=== PATIENT | male | born 1985 | race Caucasian/White ===

== ENCOUNTER 2023-06-30 11:10 | Outpatient (OUT) | payer BC, SELFPAY ==
--- NOTE | 2023-06-30 | XR_ITS ---
The [address] [address] Patient Name: RILEY NEWSOME MRN: [id number] date: 1985 Sex: M Assigned Patient Location: LAB Current Patient Location: Accession/Order Number: [id number] Exam Date: 06/30/2023 11:30 Report Date: 07/01/2023 06:15 At the request of: EMERSON CLARK Procedure: XR chest 2V EXAMINATION: XR chest 2V HISTORY: Productive cough yellow sputum R05.8 COMPARISON: No relevant comparison available. FINDINGS: LUNGS: No significant pulmonary parenchymal abnormalities. VASCULATURE: No increased pulmonary vasculature. PLEURA: No pneumothorax, effusion, or pleural thickening. CARDIAC: No cardiomegaly or cardiac silhouette abnormality. MEDIASTINUM: No visible mass or adenopathy. BONES: No fracture or visible bone lesion. OTHER: Negative. XR/XR chest 2V IMPRESSION: 1. No acute cardiopulmonary process or suspicious findings. Electronically authenticated by: YINA DONAHUE Date: 07/01/2023 06:15
[2023-06-30 11:28] LABS: Basophils Absolute Auto 0.1 10^3/uL (0.0-0.1); Eosinophils Absolute Auto 0.2 10^3/uL (0.0-0.7); Eosinophils Percent Auto 2.7 % (0.9-7.0); Hemoglobin 14.9 g/dL (14.0-18.0); Immature Granulocytes Abs Auto 0.02 10^3/uL (0.00-0.03); Immature Granulocytes Pct Auto 0.2 % (0.0-0.5); Lymphocytes Absolute Auto 2.7 10^3/uL (1.2-3.8); Lymphocytes Percent Auto 32.6 % (20.5-60.0); Mean Corpuscular HGB Conc 35.5 g/dL (29.9-35.2); Mean Corpuscular Hemoglobin 31.4 pg (25.9-34.0); Mean Corpuscular Volume 88.6 fL (80.0-94.0); Mean Platelet Volume 8.5 fL (9.5-13.5); Monocytes Absolute Auto 0.6 10^3/uL (0.3-0.8); Monocytes Percent Auto 6.8 % (1.7-12.0); Neutrophils Absolute Auto 4.7 10^3/uL (1.4-6.5); Neutrophils Percent Auto 56.7 % (43.0-75.0); Platelet Count 209 10^3/uL (150-450); Red Blood Count 4.74 10^6/uL (4.70-6.10); Red Cell Distribution Width 11.8 % (11.0-15.0); White Blood Count 8.3 10^3/uL (4.0-11.0)
[2023-06-30 11:43] LABS: Alanine Aminotransferase 37 U/L (16-63); Albumin Level 3.7 g/dL (3.4-5.0); Alkaline Phosphatase 67 U/L (46-116); Anion Gap 13.7; Aspartate Amino Transferase 22 U/L (15-37); BUN Creatinine Ratio 11.4; Bilirubin Total 0.7 mg/dL (0.2-1.0); Calcium 9.3 mg/dL (8.5-10.1); Carbon Dioxide 26.4 mmol/L (21.0-32.0); Chloride 104 mmol/L (98-107); Chol HDL Ratio 4.9; Cholesterol 207 mg/dL (<=200); Estimated GFR (African America >60 (>=60); Estimated GFR (Non-African Ame >60 (>=60); Globulin 3.6 g/dL; Glucose 99 mg/dL (74-106); HDL Cholesterol 42 mg/dL (40-60); Potassium 4.1 mmol/L (3.5-5.1); Sodium 140 mmol/L (136-145); Total Protein 7.3 g/dL (6.4-8.2); Triglycerides 123 mg/dL (<=150); VLDL CHOLESTEROL 24.6 mg/dL
== END 2023-06-30 11:11 | disposition home or self-care (01) ==
LOC: LAB 11:12
PROVIDERS: PCP Internal Medicine; Visit Provider Internal Medicine
DX: Z00.00 Encounter for general adult medical examination without abnormal findings (principal); R05.8 Other specified cough
CPT/HCPCS: 36415; 71046; 80053; 80061; 85025

== ENCOUNTER 2023-11-28 19:18 | Emergency (ER) | payer BC, SELFPAY ==
[2023-11-28 19:21] VITALS: BP 133/100; PULSE 74; O2SAT 96; BMI 32.5
--- NOTE | 2023-11-28 19:40 | XR_ITS ---
The [address] [address] Patient Name: RILEY NEWSOME MRN: [id number] date: 1985 Sex: M Assigned Patient Location: ER Current Patient Location: Accession/Order Number: [id number] Exam Date: 11/28/2023 20:12 Report Date: 11/28/2023 21:18 At the request of: ROBERT MARKER Procedure: XR elbow RT min 3V RIGHT ELBOW X-RAYS, 11/28/2023. HISTORY: Fell from ladder. Pain. COMPARISON: None. FINDINGS: 3 views of the elbow obtained. Bone mineralization is normal. Alignment normal. No dislocation. No joint effusion. The radial head is intact. XR/XR elbow RT min 3V IMPRESSION: No acute fracture or dislocation at the elbow. Electronically authenticated by: LEE ANN MILLARD Date: 11/28/2023 21:18
--- NOTE | 2023-11-28 19:40 | XR_ITS ---
The [place] [id number] Patient Name: RILEY NEWSOME MRN: [id number] date: 1985 Sex: M Assigned Patient Location: ER Current Patient Location: Accession/Order Number: [id number] Exam Date: 11/28/2023 20:12 Report Date: 11/28/2023 21:18 At the request of: ROBERT MARKER Procedure: XR forearm RT 2V RIGHT FOREARM X-RAYS, 11/28/2023. HISTORY: Fall. Wrist pain. COMPARISON: None. FINDINGS: Mildly displaced, impacted fracture of the distal radius without angulation. Minimally displaced ulnar styloid fracture. The proximal radius and ulna are intact. No dislocation at the elbow. XR/XR forearm RT 2V IMPRESSION: 1. Mildly comminuted and impacted fracture of the distal radius with minimally displaced ulnar styloid fracture. 2. No other radius or ulna fracture. Electronically authenticated by: LEE ANN MILLARD Date: 11/28/2023 21:18
--- NOTE | 2023-11-28 19:40 | XR_ITS ---
The [address] [address] Patient Name: RILEY NEWSOME MRN: [id number] date: 1985 Sex: M Assigned Patient Location: ER Current Patient Location: Accession/Order Number: [id number] Exam Date: 11/28/2023 20:12 Report Date: 11/28/2023 21:18 At the request of: ROBERT MERINO Procedure: XR wrist RT 2V RIGHT WRIST X-RAYS, 11/28/2023. HISTORY: Pain. Fall. COMPARISON: None. FINDINGS: 2 views obtained. There is a comminuted impacted fracture of the distal radius. There is a displaced fracture fragment anteriorly displaced by 3 mm. Minimally displaced ulnar styloid fracture. Distal radial ulnar joint is intact. The carpal bones appear to be intact. Soft tissue swelling. No radiopaque foreign body or soft tissue gas. XR/XR wrist RT 2V IMPRESSION: 1. Comminuted and mildly displaced impacted fracture of the distal radius. Minimally displaced ulnar styloid fracture. 2. No dislocation. Carpal bones are intact. Electronically authenticated by: LEE ANN MILLRAD Date: 11/28/2023 21:18
--- NOTE | 2023-11-28 19:40 | ED_ITS ---
HPI HPI - General Adult General Chief complaint: Extremity Injury, Upper Stated complaint: Upper Extremity Injury - Fall off Ladder Time Seen by Provider: 11/28/23 19:30 Source: patient Mode of arrival: walk-in Limitations: no limitations History of Present Illness HPI narrative: This 38-year-old male who is right-hand dominant presents for evaluation of right elbow and wrist pain. The patient was on the ladder approximately 6 feet up trimming bushes when the ladder started to fall and he landed on his right side. He has pain from his right elbow to his right wrist with a deformity of the right wrist. He denies striking his head. He has no neck or back pain. He denies any chest pain or shortness of breath. He was ambulatory after the fall. Related Data Home Medications ?Medication ?Instructions ?Recorded ?Confirmed No Known Home Medications 11/28/23 11/28/23 Allergies Allergy/AdvReac Type Severity Reaction Status Date / Time No Known Drug Allergies Allergy Verified 11/28/23 19:24 Opioid HPI Opioid Management Most Recent Opioid Data: Last Pain Scale 9 11/28/23 20:04 Last ED Pain Assessment 11/28/23 20:04 Last MAR Pain Assessment 11/28/23 19:58 Review of Systems ROS Status of ROS 10 or more systems reviewed and unremark able except as noted in history and below Exam Narrative Exam Narrative: Vital signs and Nursing Notes reviewed: Patient is afebrile with a normal pulse, blood pressure is elevated at 133/100, he is not hypoxic with pulse ox of 96% on room air General: Awake, alert, oriented, uncomfortable appearing adult male with his right arm on a pillow, GCS 15, no respiratory distress HEENT: Normocephalic atraumatic, mucous membranes are moist and pink, eyes are clear, normal conjunctiva, vision is grossly intact, posterior pharynx is normal in appearance. Tympanic membranes are normal bilaterally Neck: Supple, no meningeal signs, no anterior or posterior cervical lymphadenopathy Chest: Lungs are clear to auscultation with good air entry, there is no wheezing rhonchi or rales appreciated no accessory muscle use, patient is speaking in complete sentences-no chest wall tenderness to palpation CVS: Regular rate and rhythm S1-S2, no murmurs rubs or gallops, pulses are brisk and equal bilaterally ABD: Soft, nondistended, nontender, no rebound guarding or rigidity, bowel sounds are normal, no pulsatile masses appreciated Extremities: There is tenderness with deformity to the right distal forearm and wrist. Fingers are warm and sensate. Radial pulses brisk. Patient resists any range of motion including range of motion of the elbow. There is no tenderness to the humerus or shoulder. Skin: Normal in appearance without rash,pallor, petechiae or purpura Neuro: No focal deficits Constitutional Vital Signs, click to edit/add: Last Vital Signs Pulse 74 11/28/23 19:21 Resp 18 11/28/23 19:21 BP 133/100 H 11/28/23 19:21 Pulse Ox 96 11/28/23 19:21 O2 Del Method Room Air 11/28/23 19:21 Course Vital Signs Vital signs: Vital Signs Pulse Rate 74 11/28/23 19:21 Respiratory Rate 18 11/28/23 19:21 Blood Pressure 133/100 H 11/28/23 19:21 Pulse Oximetry 96 11/28/23 19:21 Oxygen Delivery Method Room Air 11/28/23 19:21 Pulse Rate 74 11/28/23 19:21 Respiratory Rate 18 11/28/23 19:21 Blood Pressure 133/100 H 11/28/23 19:21 Pulse Oximetry 96 11/28/23 19:21 Oxygen Delivery Method Room Air 11/28/23 19:21 Medical Decision Making MDM Narrative Medical decision making narrative: This 38-year-old male who is right-hand dominant presents for evaluation of a right upper extremity injury after he was on a ladder approximately 6 feet up that started to slide and he fell striking the right elbow on the ladder as he went down according to his . She watch this on the ring camera. He denies injuring his neck or back. He has no chest pain or shortness of breath. He has tenderness and deformity at the right distal radius with some forearm tenderness and elbow tenderness. An IV was placed and he was medicated with a dose of IV Dilaudid and Zofran. X-ray of the extremity shows an impacted distal radius and ulna fracture. Elbow fracture was read by radiology as normal. I reviewed the x-rays myself and saw an anterior fat pad sign on the elbow and the patient was placed in a long-arm posterior splint for immobilization of the possible elbow/radial head fracture and distal wrist fracture. Medicated with a dose of Percocet prior to discharge and given 2 Percocet to take home. He will be referred to outpatient orthopedics and a prescription for Percocet and Zofran was given to him at the time of discharge. Medical Records Medical records narrative: [place] [address] XRay Report Draft Patient: RILEY NEWSOME MR#: [id number] : 1985 Acct:[id number] Age/Sex: 38 / M ADM Date: 11/28/23 Loc: ER Attending Dr: Ordering Physician: Jillian Low Date of Service: 11/28/23 Procedure(s): XR elbow RT min 3V Accession Number(s): [id number] cc: ~ [place] [address] Patient Name: RILEY NEWSOME MRN: [id number] date: 1985 Sex: M Assigned Patient Location: ER Current Patient Location: ER Accession/Order Number: [id number] Exam Date: 11/28/2023 20:12 Report Date: 11/28/2023 21:09 At the request of: JILLIAN LOW Procedure: XR elbow RT min 3V RIGHT ELBOW X-RAYS, 11/28/2023. HISTORY: Fell from ladder. Pain. COMPARISON: None. FINDINGS: 3 views of the elbow obtained. Bone mineralization is normal. Alignment normal. No dislocation. No joint effusion. The radial head is intact. XR/XR elbow RT min 3V IMPRESSION: No acute fracture or dislocation at the elbow. Electronically authenticated by: LEE ANN MILLARD Date: 11/28/2023 21:09 The [place] [id number] XRay Report Draft Patient: RILEY NEWSOME MR#: [id number] : 1985 Acct:[id number] Age/Sex: 38 / M ADM Date: 11/28/23 Loc: ER Attending Dr: Ordering Physician: Jillian Low Date of Service: 11/28/23 Procedure(s): XR forearm RT 2V Accession Number(s): [id number] cc: ~ [place] [address] Patient Name: RILEY NEWSOME MRN: [id number] date: 1985 Sex: M Assigned Patient Location: ER Current Patient Location: ER Accession/Order Number: [id number] Exam Date: 11/28/2023 20:12 Report Date: 11/28/2023 21:08 At the request of: JILLIAN MARKER Procedure: XR forearm RT 2V RIGHT FOREARM X-RAYS, 11/28/2023. HISTORY: Fall. Wrist pain. COMPARISON: None. FINDINGS: Mildly displaced, impacted fracture of the distal radius without angulation. Minimally displaced ulnar styloid fracture. The proximal radius and ulna are intact. No dislocation at the elbow. XR/XR forearm RT 2V IMPRESSION: 1. Mildly comminuted and impacted fracture of the distal radius with minimally displaced ulnar styloid fracture. 2. No other radius or ulna fracture. Discharge Plan Discharge Chief Complaint: Extremity Injury, Upper Clinical Impression: Fracture of wrist Patient Disposition: Home, Self-Care Time of Disposition Decision: 20:54 Condition: Good Prescriptions / Home Meds: No Action No Known Home Medications Print Language: Iranian Instructions: Wrist Fracture in Adults (ED) Referrals: Jarret Palafox DO [Primary Care Provider] - 1 week Syed Valencia MD [Physician] - As soon as possible Procedures ED Procedure Instructions Procedures Procedures: Fracture care without manipulation; a long-arm posterior splint was applied over heavy packing from the axilla to the hand to immobilize the distal humerus, elbow forearm and wrist. Patient tolerated procedure well. He was moving his fingers after the procedure and was neurovascularly intact.
[2023-11-28] MEDS: HYDROMORPHONE HCL 1 MG/ML CARTRIDGE IV (19:58)
[2023-11-28] MEDS: ONDANSETRON PF 4 MG/2 ML VIAL IV (19:58)
[2023-11-28] MEDS: OXYCODONE HCL/ACETAMINOPHEN 5MG/325MG 1 TAB PO ×2 (21:23)
[2023-11-28 21:30] VITALS: PULSE 78
== END 2023-11-28 21:36 | disposition home or self-care (01) ==
PROVIDERS: Emergency Provider Emergency Medicine; PCP Internal Medicine
DX: S52.501A Unspecified fracture of the lower end of right radius, initial encounter for closed fracture (principal); W11.XXXA Fall on and from ladder, initial encounter
CPT/HCPCS: 29105; 73080; 73090; 73100; 96374; 96375; 99284; J1170; J2405

== ENCOUNTER 2023-12-03 14:06 | Day surgery (SDC) | payer BC, SELFPAY ==
[2023-12-03] VITALS (18 sets, daily range): BP systolic 139–164; BP diastolic 86–119; PULSE 81–95; TEMP 36.1–36.2; O2SAT 90–100; BMI 36.5
--- NOTE | 2023-12-03 | FL_ITS ---
[address] [address] Patient Name: RILEY NEWSOME MRN: [id number] date: 1985 Sex: M Assigned Patient Location: [facility] Current Patient Location: Accession/Order Number: [id number] Exam Date: 12/03/2023 18:00 Report Date: 12/05/2023 10:12 At the request of: YINA ATKINS Procedure: FL fluoroscopy <1hr NON-READ EXAM: FL fluoroscopy <1hr NON-READ HISTORY: TECHNIQUE: FINDINGS: Please see Operative Report. Electronically authenticated by: RADIOLOGIST NO Date: 12/05/2023 10:12
--- NOTE | 2023-12-03 | FL_ITS ---
[address] [address] Patient Name: RILEY NEWSOME MRN: [id number] date: 1985 Sex: M Assigned Patient Location: [facility] Current Patient Location: Accession/Order Number: [id number] Exam Date: 12/03/2023 16:05 Report Date: 12/05/2023 10:12 At the request of: YINA ATKINS Procedure: FL fluoroscopy <1hr NON-READ EXAM: FL fluoroscopy <1hr NON-READ HISTORY: TECHNIQUE: FINDINGS: Please see Operative Report. Electronically authenticated by: RADIOLOGIST NO Date: 12/05/2023 10:12
[2023-12-03 14:16] LABS: Basophils Absolute Auto 0.1 10^3/uL (0.0-0.1); Basophils Percent Auto 0.8 % (0.2-2.0); Eosinophils Absolute Auto 0.3 10^3/uL (0.0-0.7); Eosinophils Percent Auto 3.1 % (0.9-7.0); Hematocrit 41.6 % (42.0-54.0); Hemoglobin 14.8 g/dL (14.0-18.0); Immature Granulocytes Abs Auto 0.02 10^3/uL (0.00-0.03); Immature Granulocytes Pct Auto 0.2 % (0.0-0.5); Lymphocytes Absolute Auto 2.7 10^3/uL (1.2-3.8); Lymphocytes Percent Auto 32.3 % (20.5-60.0); Mean Corpuscular HGB Conc 35.6 g/dL (29.9-35.2); Mean Corpuscular Hemoglobin 31.7 pg (25.9-34.0); Mean Corpuscular Volume 89.1 fL (80.0-94.0); Mean Platelet Volume 8.4 fL (9.5-13.5); Monocytes Absolute Auto 0.7 10^3/uL (0.3-0.8); Monocytes Percent Auto 7.8 % (1.7-12.0); Neutrophils Absolute Auto 4.7 10^3/uL (1.4-6.5); Neutrophils Percent Auto 55.8 % (43.0-75.0); Platelet Count 213 10^3/uL (150-450); Red Blood Count 4.67 10^6/uL (4.70-6.10); Red Cell Distribution Width 11.6 % (11.0-15.0); White Blood Count 8.4 10^3/uL (4.0-11.0)
[2023-12-03] MEDS: LACTATED RINGER'S SOLUTION 1,000 ML 50 ML IV (14:47)
--- NOTE | 2023-12-03 15:36 | PC.NURSE ---
Patient was consented for block. Time out performed per protocol at 1500. Patient was positioned with monitors and O2 placed. Medicated per Dr. Watt. Bedside ultrasound used to locate nerve site. Block started at 1505 and ended at 1513. Patient tolerated procedure well. Patient remains on monitors and O2 until he will be taken to OR. at bedside at this time.
[2023-12-03] MEDS: CEFAZOLIN SODIUM 2 GM/50 ML D5W PREMIX IV (15:53)
--- NOTE | 2023-12-03 16:10 | P.ORPRC_ITS ---
Procedure Note Date of procedure: 12/03/23 Pre-op diagnosis: Right distal radius fracture, greater than 4 part intra- articular Post-op diagnosis: same as pre-op Procedure: Procedure: Open reduction internal fixation right distal radius fracture After informed consent was obtained the patient brought to the operating room where general anesthetic was administered. Preoperatively a regional block was placed. A well-padded proximal arm tourniquet was placed on the right arm was prepped and draped in the usual sterile fashion. The arm was elevated, exsanguinated, and the tourniquet was inflated to 250 mmHg. A 6 cm incision was made overlying the flexor carpi radialis tendon at the distal radius fracture. Blunt dissection was carried down through soft tissue. Flexor carpi radialis was retracted ulnarly along with the FPL muscle and tendon. The underlying pronator quadratus was identified and incised in an L- shaped fashion off of the bone. The fracture was identified and found to be greater than 3 part comminuted and intra-articular. Using combination of traction and manipulation reduction was performed. A Synthes plate was utilized due to the very distal nature of the fracture. Plate was first fixed in a bi cortical nonlocking fashion to the shaft fragment using a 2.7 nonlocking screw. Under live fluoroscopy the radius was held in a reduced position and the distal locking screws were placed. 3 screws were placed in a unicortical locking fashion in the radial styloid fragment and 3 screws were placed in a unicortical locking fashion in the ulnar portion of the fracture. X-rays revealed a reduced joint in both AP and lateral planes. Remaining screws were placed in the shaft fragment and a bicortical locking fashion using 2.4 mm locking screws.. Final x- rays in multiple planes revealed a reduced distal radius fracture with appropriate implant placement and lengths. Wound was irrigated. Pronator quadratus was repaired with an 0 Vicryl suture. Skin was closed in standard fashion. Volar fiberglass splint was placed. At this point the procedure was noticed that the patient did not have full flexion of his elbow. There was some varus and valgus instability of the elbow and with traction a palpable clunk occurred and with this return of elbow range of motion. A long posterior splint was placed and x-rays confirmed a reduced elbow joint. Patient was awakened and brought to the recovery room in stable condition. There were no intraoperative or immediate postoperative complications. Anesthesia: regional and General-LMA Surgeon: Syed Valencia Estimated blood loss (mL): 10 Pathology: none sent Condition: stable Disposition: PACU
[2023-12-03] MEDS: HYDRALAZINE HCL 20 MG/ML VIAL 5 MG IVP (18:42)
--- NOTE | 2023-12-03 19:03 | PC.NURSE ---
PATIENT HAD ELEVATED BLOOD PRESSURES. UPDATED DR. CASE AND HE ORDERED 5 ML OF HYDRALAZINE. BLOOD PRESSURES ARE BETTER AFTER DOSE OF BLOOD PRESSURE MEDS. BLOOD PRESSURE MEDICATION GIVEN AT 1842. pATIENT IS RESTING COMFORTABLE AND DENIES ANY PAIN.
--- NOTE | 2023-12-03 19:48 | PC.NURSE ---
PATIENT AND THIS DRY CANS BACK TENDER ARE WALKING OUT THE DOOR PATIENT STATES HE HAS A HEADACHE. OFFERED HIM PAIN MEDS AND HE STATES HE WILL WAIT UNTIL HE GETS HOME. PATIENT STATED IT COULD BE FROM HIM LAYING ON HIS BACK. HE CAN'T TOLERATE LAYING ON HIS BACK FOR LONG PERIODS OF TIME.
== END 2023-12-03 19:42 | disposition home or self-care (01) ==
PROVIDERS: Anesthesiology; PCP Internal Medicine; Visit Provider Orthopaedic Surgery
PROC: (CPT 1830; principal; 2023-12-03 16:40)
DX: S52.571A Other intraarticular fracture of lower end of right radius, initial encounter for closed fracture (principal); W11.XXXA Fall on and from ladder, initial encounter
CPT/HCPCS: 25609; 36415; 64417; 76000; 85025; C1713; J0360; J0690; J1100; J1170; J1885; J2250; J2405; J2704; J2795; J3010

== ENCOUNTER 2024-04-21 16:30 | Outpatient (OUT) | payer BC, SELFPAY ==
[2024-04-21 16:43] LABS: Basophils Absolute Auto 0.1 10^3/uL (0.0-0.1); Basophils Percent Auto 0.9 % (0.2-2.0); Eosinophils Absolute Auto 0.2 10^3/uL (0.0-0.7); Eosinophils Percent Auto 2.5 % (0.9-7.0); Hematocrit 41.5 % (42.0-54.0); Immature Granulocytes Abs Auto 0.02 10^3/uL (0.00-0.03); Immature Granulocytes Pct Auto 0.2 % (0.0-0.5); Lymphocytes Absolute Auto 3.5 10^3/uL (1.2-3.8); Lymphocytes Percent Auto 37.3 % (20.5-60.0); Mean Corpuscular HGB Conc 36.1 g/dL (29.9-35.2); Mean Corpuscular Hemoglobin 31.9 pg (25.9-34.0); Mean Corpuscular Volume 88.3 fL (80.0-94.0); Mean Platelet Volume 8.4 fL (9.5-13.5); Monocytes Absolute Auto 0.8 10^3/uL (0.3-0.8); Monocytes Percent Auto 8.4 % (1.7-12.0); Neutrophils Absolute Auto 4.8 10^3/uL (1.4-6.5); Neutrophils Percent Auto 50.7 % (43.0-75.0); Platelet Count 232 10^3/uL (150-450); Red Cell Distribution Width 12.1 % (11.0-15.0); White Blood Count 9.5 10^3/uL (4.0-11.0)
--- OUTSIDE RECORDS SUMMARY | 2024-04-21 16:45 | XMS_ITS | CCD ---
Author Organization [facility] Inform ion Partnership [facility] Care Team Providers Care Rn Flight Name Role Phone DR JARRET CLARK Attending Unavailable JAVY, DR NORMAN Consulting Unavailable JAVY, DR NORMAN Primary Care Unavailable JAVY, DR NORMAN Admitting Unavailable [place] Unavailable Nany Elizabeth Unavailable JARRET CLARK Primary Care Unavailable YINA ATKINS Referring Unavailable JARRET CLARK Primary Care Unavailable YINA ATKINS Referring Unavailable Jarret Clark DO Primary Care Provider [phone] Medications Completed/Discontinued Medications Medication Drug Class(es) Dates Sig (Normalized) Sig (Original) azithromycin 250 mg oral tablet (2 sources) Macrolide Antimicrobial Start: 06-05-2023 End: 06-19-2023 Azithromycin Discontinued 250 MG PO As Directed 6 June 05, 2023 12:00am June 19, 2023 11:33am predniSONE 20 mg oral tablet (3 sources) Start: 05-24-2023 End: 06-19-2023 take 20 mg by mouth twice daily Prednisone Discontinued 20 MG PO Twice daily 10 May 24, 2023 12:00am June 19, 2023 11:33am Problems Active Problems Problem Classification Problem Date Documented Da te Episodic/Chronic Immunizations and screening for infectious disease (3 sources) Contact with and (suspected) exposure to other viral communicable diseases; Translations: [Contact with and (suspected) exposure to other viral communicable diseases] Onset: 03-16-2021 Resolved: 11-16-2021 Episodic Influenza (1 source) Influenza due to other identified influenza virus with other respiratory manifestations; Translations: [Influenza with other respiratory manifestations] 05-24-2023 Episodic Other lower respiratory disease (1 source) Productive cough-yellow sputum; Translations: [Cough with frothy sputum] 06-19-2023 Episodic Other non-traumatic joint disorders (3 sources) Pain in right wrist; Translations: [Pain in right wrist] Onset: 11-30-2023 Episodic Other nutritional; endocrine; and metabolic disorders (1 source) Obesity; Translations: [Obesity, unspecified] 06-19-2023 Chronic Other nutritional; endocrine; and metabolic disorders (1 source) Obesity, unspecified; Translations: [Obesity, unspecified] 06-19-2023 Chronic Other screening for suspected conditions (not mental disorders or infectious disease) (2 sources) Encounter for screening for lipoid disorders; Translations: [Encounter for screening for diabetes mellitus] Onset: 09-08-2020 Episodic Other upper respiratory disease (1 source) Dysphonia; Translations: [Dysphonia] 06-19-2023 Episodic Other upper respiratory infections (1 source) Acute sinusitis, unspecified; Translations: [Acute sinusitis, unspecified] 06-05-2023 Episodic Past or Other Problems Problem Classification Problem Date Documented Da te Episodic/Chronic Viral infection (2 sources) COVID-19 Onset: 03-16-2021 Resolved: 11-16-2021 Results Test Name Value Interpretation Reference Range Facility XR WRIST RIGHT (MIN 3 VIEWS) on 11-30-2023 XR WRIST RIGHT (MIN 3 VIEWS) EXAM: XR WRIST RIGHT (MIN 3 VIEWS) HISTORY: Right wrist pain. COMPARISON: 11/28/2023 [facility]. IMPRESSION: FINDINGS/IMPRESSION: 1. Intra-articular fracture distal radius, comminuted, with slight impaction. 2. No angulation or dislocation. 3. DRUJ anatomically aligned. 4. Undisplaced ulnar styloid fracture again seen. 5. Diffuse soft tissue swelling, increased. Interpreted by: Alex Sun Jr., MD Signed by: Alex Sun Jr., MD 11/30/23 Final result Normal [facility] Influenza virus B Ag [Presen ce] in Upper respiratory specimen by Rapid immunoassayon 05-24-2023 FLUBV Ag IA.rapid Ql (Nph) Positive [facility] No Panel Informationon 05-23 Influenza Type A (Rapid) Negative [facility] POC SARS CoV-2 Antigen Negative [facility] COVID Quick Testingon 2021 Result Positive [employer] Other Quick Strepon 11-16-2021 S. pyogenes Org specific cx Ql (Throat) Negative [employer] [facility] [employer] Other Quick Strep [employer] [facility] [employer] Other COVID Quick Testingon 2021 Result Positive [facility] [employer] Other GLUCOSE BLOODon 09-04-2020 Glucose [Mass/Vol] 102 mg/dL Normal 74-[facility] Comment on above: Performed By: #### L IPID, GLUC #### [facility] [address] [place], [place] [address] Sukhwinder Marla LIPID PROFILEon 09-04-2020 CHOL-HDL RATIO NORM SEE BELOW Normal [facility] Comment on above: Result Comment: 3.3 - 4.4 LOW RISK 4.4 - 7.1 AVERAGE RISK 7.1 - 11.0 MODERATE RISK >11.0 HIGH RISK Performed By: #### L IPID, GLUC #### [facility] [address] [place] [id number] Sukhwinder Marla Cholesterol [Mass/Vol] 196 mg/dL Normal <=200 [facility] Comment on above: Performed By: #### L IPID, GLUC #### [facility] [address] [id number] Sukhwinder Marla Cholesterol in HDL [Mass/Vol] 36 mg/dL Normal [facility] Comment on above: Performed By: #### L IPID, GLUC #### [facility] [address] [id number] Sukhwinder Marla Cholesterol in LDL [Mass/Vol] 136.8 mg/dL Normal [facility] Comment on above: Performed By: #### L IPID, GLUC #### [facility] [address] [place], [place] [address] Sukhwinder Marla Cholesterol.total/C holesterol in HDL [Mass ratio] 5.4 {ratio} Normal [facility] Comment on above: Performed By: #### L IPID, GLUC #### [facility] [address] [place], [place] [address] Sukhwinder Marla HDL NORMAL > or = 60 mg/dl - LOW CARDIOVASCULAR RISK <40 mg/dl - HIGH CARDIOVASCULAR RISK Normal [facility] Comment on above: Performed By: #### L IPID, GLUC #### [facility] [address] [place], [place] [address] Sukhwinder Marla LDL CALC NORMAL SEE BELOW Normal [facility] Comment on above: Result Comment: <100 mg/dl OPTIMAL 100 - 129 mg/dl NEAR OR ABOVE OPTIMAL 130 - 159 mg/dl BORDERLINE HIGH 160 - 189 mg/dl HIGH >190 mg/dl VERY HIGH Performed By: #### L IPID, GLUC #### [facility] [address] [place], [place] [address] Sukhwinder Marla Triglyceride [Mass/Vol] 116 mg/dL Normal <=150 [facility] Comment on above: Performed By: #### L IPID, GLUC #### [facility] [address] [place], [place] [address] Sukhwinder Marla VLDL CALC 23.2 mg/dL Normal [facility] Comment on above: Performed By: #### L IPID, GLUC #### [facility] [address] [place], [place] [address] Sukhwinder Marla Vital Signs Date Time Vital Sign Value Performing Clinician Facility 06-19-2023 11:34-0400 Body height 182.88 cm [facility] 06-19-2023 11:34-0400 Body mass index (BMI) [Ratio] 36.6 kg/m2 [facility] 06-19-2023 11:34-0400 Body weight 122.52 kg [facility] 06-19-2023 11:34-0400 Diastolic blood pressure 78 mm[Hg] [facility] 06-19-2023 11:34-0400 Heart rate 85 /min [facility] 06-19-2023 11:34-0400 Respiratory rate 12 /min [facility] 06-19-2023 11:34-0400 Systolic blood pressure 126 mm[Hg] [facility] 05-24-2023 [id number] Body height 182.88 cm [facility] 05-24-2023 16:11-0400 Body mass index (BMI) [Ratio] 36.1 kg/m2 [facility] 05-24-2023 16:11-0400 Body temperature 96.6 [degF] [facility] 05-24-2023 16:11-0400 Body weight 120.65 kg [facility] 05-24-2023 16:11-0400 Heart rate 81 /min [facility] 05-24-2023 16:11-0400 Respiratory rate 18 /min [facility] 05-24-2023 16:11-0400 SaO2% (BldA) [Mass fraction] 97 % [facility] 11-16-2021 10:55-0400 Body height 182.88 cm Nany Clara Other [employer] [facility] [employer] Other 11-16-2021 10:55-0400 Body mass index (BMI) [Ratio] 32.55 kg/m2 Nany Guanmond Other [employer] Other 11-16-2021 10:55-0400 Body temperature 97.4 [degF] Nany Elizabeth Other [employer] Other 11-16-2021 10:55-0400 Body weight 108.86 kg Nany Guanmond Other [employer] Other 11-16-2021 10:55-0400 Respiratory rate 16 /min Nany Guanmond Other [employer] Other 11-16-2021 10:55-0400 SaO2% (BldA) [Mass fraction] 96 % Nany Guanmond Other [employer] Other 03-16-2021 11:45-0500 Body height 182.88 cm Jerad Hodges Other [employer] Other 03-16-2021 11:45-0500 Body mass index (BMI) [Ratio] 32.55 kg/m2 Jerad Hodges Other [employer] Other 03-16-2021 11:45-0500 Body temperature 98.4 [degF] Jerad Hodges Other [employer] Other 03-16-2021 11:45-0500 Body weight 108.86 kg Jerad Hodges Other [employer] Other 03-16-2021 11:45-0500 Respiratory rate 16 /min Jerad Hodges Other [employer] Other 03-16-2021 11:45-0500 SaO2% (BldA) [Mass fraction] 97 % Jerad Hodges Other [employer] Other Encounters Encounter Date Encounter Type Care Provider Facility Start: 11-30-2023 End: 12-02-2023 ambulatory JARRET CLARK [facility] [place] Start: 11-30-2023 End: 12-02-2023 Subsequent hospital visit by physician Jarret Clark DO Work Phone: [facility] Start: 06-19-2023 End: 06-19-2023 ambulatory [facility] Work Phone: Start: 06-19-2023 End: 06-19-2023 Encounter for general adult medical examination without abnormal findings [facility] Start: 06-19-2023 End: 06-19-2023 Patient encounter procedure [facility] Work Phone: Start: 06-05-2023 End: 06-05-[address] [facility] Work Phone: Start: 06-05-2023 End: 06-05-2023 Patient encounter procedure [facility] Work Phone: Start: 05-24-2023 End: 05-24-2023 ambulatory [facility] Work Phone: Start: 05-24-2023 End: 05-24-2023 Patient encounter procedure [facility] Work Phone: Start: 11-16-2021 End: 11-16-2021 ambulatory Nany Elizabeth Other [employer] Other Start: 11-16-2021 Office outpatient vi sit 15 minutes Nany Elizabeth [facility] Start: 03-16-2021 End: 03-16-2021 ambulatory Jerad Tracie Other [employer] Other Start: 03-16-2021 Office outpatient ne w 20 minutes Jerad [place] [facility] Start: 09-08-2020 Encounter for genera l adult medical examination without abnormal findings DR JARRET CLARK [facility] Start: 09-04-2020 End: 09-05-[address] JARRET CLARK Facility:[facility]1 Start: 09-04-2020 End: 09-05-2020 Encounter for general adult medical examination without abnormal findings DR JARRET CLARK Facility:[facility] Plan of Treatment Date Care Activity Detail Author Start: 11-11-2023 COVID-19 Vaccine ( season) COVID-19 Vaccine ( season) [facility] Start: 10-11-2023 Influenza vaccination Flu vaccine (# 1) [facility] Start: 2005 DTaP/Tdap/Td vaccine (1 - Tdap) DTaP/Tdap/Td vaccine (1 - Tdap) [facility] Start: 2005 Hepatitis B vaccine (1 of 3 - 19+ 3-dose series) Hepatitis B vaccine (1 of 3 - 19+ 3-dose series) [facility] Start: 2004 Hepatitis C screening Hepatitis C sc reen [facility] Start: 2001 HIV screening HIV screen [facility] Start: 07-05-1999 Varicella vaccine (1 of 2 - 13+ 2-dose series) Varicella vaccine (1 of 2 - 13+ 2-dose series) [facility] Start: 1998 Depression Screen Depression Screen [facility] Comprehensive metabo lic 2000 panel - Serum or Plasma [facility] XR Chest 2 Views [facility] Payers Date Payer Category Payer Unknown [id number] 1986 Unknown [id number] 1986 Unknown [id number] 1986 Unknown [id number] 1959 Unknown [id number] Unknown [employer] BC/BS [id number] Social History Date Type Detail Facility Start: 06-30-2012 Sex Assigned At N [employer] Other Start: 05-24-2023 Tobacco smoking status [place]IS Never smoked tobacco (finding) [facility] Start: 1985 Sex Assigned At Male [facility] Tobacco smoking status [facility] Tobacco smoking consumption unknown [facility] Start: 06-30-2012 History of Social function [facility] Start: 1985 Sex assigned at Not on file [facility] Evaluation note 11-16-2021 Note Date & Type Note Facility 11-16-2021 Evaluation note Encounter Date Diagnosis Assessment Notes Nov, Contact with and (suspected) exposure to other viral communicable diseases (ICD-10 - Z20.828) Nov, COVID-19 (ICD-10 - U07.1) Discharge Instructions for COVID-19 (Suspected or Confirmed ) material was printed Drink plenty fluids, get plenty of rest. Take Tylenol or Motrin as needed for aches pains or fevers. You may take Mucinex or Sudafed for nasal congestion. Drink warm tea with honey for your sore throat. Follow-up with your family physician if no improvement in 2 to 3 days. You must quarantine for 5 days after the onset of your symptoms of COVID [employer] Other Evaluation note 03-16-2021 Note Date & Type Note Facility 03-16-2021 Evaluation note Encounter Date Diagnosis Assessment Notes Mar, Contact with and (suspected) exposure to other viral communicable diseases (ICD-10 - Z20.828) Mar, COVID-19 virus infection (ICD-10 - U07.1) Today you tested positive for the COVID virus. This mean you need to follow all CDC quarantine guidelines found at coronavirus.[place].gov. It is important to rest, increase fluids, and stay at home. Contact PCP and inform them of results. Medications like Mucinex, Cepacol, Tylenol, saline nasal spray are over the counter medications that can help with the symptoms. Current guidelines include staying home, having no fever above 100.4 for 24 hours without medication and having significant improvement of symptoms before you are allowed to stop your quarantine.. For full guidelines go to CDC. GOV. Contact primary care and ask for guidance is essential to follow up. Go to the ER if you develop chest pain, shortness of breath, or feel like you are going to pass out. Mar, Other Additional time spent conducting pre-visit phone call, screening for symptoms, instructions on social distancing, application and removal of PPE, and cleaning of examination room, equipment and supplies was preformed. Patient education given for testing methodology and results. Patient care instructions given in writting by [facility] document. [employer] Other Evaluation note Note Date & Type Note Facility Evaluation note No assessment information availa [facility] Work Phone: Evaluation note Note Date & Type Note Facility Evaluation note Diagnosis Onset Date Influenza B noneactive Acute sinusitis noneactive Obesity acute Cough productive of yellow sputum noneactive Voice hoarseness noneactive Wellness examination noneact [facility] Work Phone: Summary Purpose Family History No Family History Records FoundNo Family History Records Found Advance Directives Advance Directive Response Recorded Date/ Time Advance Directives No May 23 4:03pm Chief Complaint and Reason for Visit Chief Complaint fever, sore throat, runny nose Chief Complaint fever, sore throat, runny nose Scratchy throat/ Voice Chief Complaint fever, sore throat, runny nose Scratchy throat/ Voice lost voice- not coming back Reason for Visit Influenza B Acute sinusitis Obesity Cough productive of yellow sputum Voice hoarseness Wellness examination Additional Source Comments (unrecognized sect ion and content) No Status Records FoundNo Status Records Found INFORMATION SOURCE (unrecogn ized section and content) DATE CREATED AUTHOR 09/09/2020 [facility] DATE CREATED AUTHOR AUTHOR'S ORGANIZ ATION 12/03/2023 [facility] REASON FOR VISIT (unrecogniz ed section and content) #8 BLACK SILVERADO, FEVER, H /A, CONGESTIONBLACK SILVERADO, SORE THROAT, SINUS CONGESTION, FEVER Care Teams (unrecognized sec tion and content) Team Status: Active Member Role Status Dates Jarret Clark DO Primary Care Provider Active Team Status: Inactive Member Role Status Dates Jarret Clark DO Primary Care Provider Active Start: May 24, 2023 End: May 24, 2023 Terese Michelle APRN Attending Provider Active Start: May 24, 2023 End: May 24, 2023 Team Status: Inactive Member Role Status Dates Jarret Clark DO Primary Care Provide r, Attending Provider Active Start: June 05, 2023 End: June 05, 2023 Team Status: Inactive Member Role Status Dates Jarret Clark DO Primary Care Provide r, Attending Provider Active Start: June 19, 2023 End: June 19, 2023 Rn Flight Relationship Specialty Start Date End Date Jarret Clakr DO [address] [place] [phone] PCP - General Internal Medicine 11/30/23 Goals (unrecognized section and content) Goals may be documented in a n alternate section FOR RECORDS PERTAINING TO PATIENTS WHO ARE OR HAVE BEEN ENROLLED IN A CHEMICAL DEPENDENCY/SUBSTANCEABUSE PROGRAM, SOME INFORMATION MAY BE OMITTED. This clinical summary was aggregated from multiple sources. Caution should be exercised in using it in the provision of clinical care. This summary normalizes information from multiple sources, and as a consequence, information in this document may materially change the coding, format and clinical context of patient data. In addition, data may be omitted in some cases. CLINICAL DECISIONS SHOULD BE BASED ON THE PRIMARY CLINICAL RECORDS. [facility] [employer] [facility]. provides no warranty or guarantee of the accuracy or completeness of information in this document.
[2024-04-21 16:54] LABS: Anion Gap 13.5; BUN Creatinine Ratio 11.2; Carbon Dioxide 29.3 mmol/L (21.0-32.0); Chloride 104 mmol/L (98-107); Estimated GFR (African America >60 (>=60 mL/min/1.73m^2); Estimated GFR (Non-African Ame >60 (>=60 mL/min/1.73m^2); Glucose 86 mg/dL (74-106); Potassium 3.8 mmol/L (3.5-5.1); Sodium 143 mmol/L (136-145)
== END 2024-04-21 16:31 | disposition home or self-care (01) ==
LOC: LAB 16:30
PROVIDERS: PCP Internal Medicine; Visit Provider Orthopaedic Surgery
DX: Z01.812 Encounter for preprocedural laboratory examination (principal)
CPT/HCPCS: 36415; 80048; 85025